=== PATIENT | female | born 1970 | race Caucasian/White ===

== ENCOUNTER 2017-10-02 17:53 | Emergency (ER) | payer BC ==
[~2017-10-02] VITALS: Ht 167.6 cm; Wt 100.0 kg
[2017-10-02] MEDS ORDERED: normal saline 1000ml 1,000 ML IV ONE (18:25)
[2017-10-02] MEDS ORDERED: LORazepam 2 mg/ml vial IV ONE ×2 (18:25→22:05)
[2017-10-02] MEDS ORDERED: morphine 4 MG/ML inj SYRINge IM ONE (18:25)
[2017-10-02] MEDS ORDERED: ketorolac trometh. 30mg/ml inj. IM ONE (18:25)
[2017-10-02] MEDS ORDERED: cyclobenzaprine 10mg tablet PO ONE (18:25)
[2017-10-02 19:00] LABS: BASOPHILS % (AUTO) 0.3 % (0-1); EOSINOPHILS # (AUTO) 0.2 X10'3 (0-0.9); EOSINOPHILS % (AUTO) 2.6 % (0-6); HEMATOCRIT 41.6 % (35.0-45.0); HEMOGLOBIN 14.1 g/dl (12.0-16.0); LYMPHOCYTES # (AUTO) 1.6 X10'3 (1.1-4.8); MEAN CORPUSCULAR HEMOGLOBIN 29.1 PG (27.0-31.0); MEAN CORPUSCULAR HGB CONC 33.9 % (33.0-36.5); MEAN CORPUSCULAR VOLUME 85.7 FL (78-98); MEAN PLATELET VOLUME 8.9 FL (7.4-10.4); MONOCYTES # (AUTO) 0.4 X10'3 (0-0.9); MONOCYTES % (AUTO) 5.2 % (2-12); NEUTROPHILS # (AUTO) 6.1 X10'3 (1.8-7.7); NEUTROPHILS % (AUTO) 72.9 % (42-75); PLATELET COUNT 274 X10'3 (140-440); RED BLOOD COUNT 4.85 X10'6 (4.20-5.60); RED CELL DISTRIBUTION WIDTH 14.4 % (11.5-14.5); WHITE BLOOD COUNT 8.4 X10'3 (4.5-11.0)
[2017-10-02 19:14] LABS: ALANINE AMINOTRANSFERASE 131 U/L (12-78); ALBUMIN 3.9 G/DL (3.4-5.0); ALBUMIN/GLOBULIN RATIO 0.8 (1.1-1.5); ALKALINE PHOSPHATASE 77 IU/L (46-116); ANION GAP 11 (8-16); ASPARTATE AMINO TRANSFERASE 68 U/L (10-37); BILIRUBIN,TOTAL 0.4 MG/DL (0.1-1.0); BLOOD UREA NITROGEN 13 MG/DL (7-18); BUN/CREATININE RATIO 21.3 (6.6-38.0); CALCIUM 9.4 MG/DL (8.5-10.1); CHLORIDE 103 MMOL/L (99-107); CREATININE 0.61 MG/DL (0.40-0.90); GLUCOSE 123 MG/DL (70-104); POTASSIUM 3.9 MMOL/L (3.5-5.1); SODIUM 141 MMOL/L (135-145); TOTAL PROTEIN 8.6 G/DL (6.4-8.2); eGFR > 90 ML/MIN
[2017-10-02] MEDS ORDERED: GABA-532 PO ×2 (20:00→22:41)
[2017-10-02] MEDS ORDERED: HYDR-569 PO ×2 (20:00→22:41)
[2017-10-02] MEDS ORDERED: CYCL-1 PO ×2 (20:00→22:41)
[2017-10-02] MEDS ORDERED: IBUP-1984 PO ×2 (20:00→22:41)
[2017-10-02] MEDS ORDERED: morphine 4 MG/ML inj SYRINge IV ONE (22:05)
[2017-10-02] MEDS ORDERED: acetaminophen 325mg tablet PO ONE (22:40)
[2017-10-02] MEDS ORDERED: ketorolac trometh. 30mg/ml inj. IV ONE (22:40)
[2017-10-02] MEDS ORDERED: BUPIVAcaine/PF 2.5mg/ml (0.25%) 10ml vial ONE (22:40)
[2017-10-02] MEDS ORDERED: LIDOcaine 2% (20mg/ml) 5ml vial ONE (22:40)
[2017-10-02] MEDS ORDERED: sodium bicarbonate 4.2% (0.5mEq/ml) inj. ONE (22:40)
[2017-10-02] MEDS ORDERED: iohexol 300 MG/1 ML 10ml vial ONE (22:41)
[2017-10-02] MEDS ORDERED: gadopentetate dimeglumine 5 mmol/10ml vial IV ONE (22:41)
[2017-10-03 01:16] LABS: APPEARANCE,CSF CLEAR; CSF SUPERNATANT COLOR COLORLESS; CSF VOLUME 9 ML; TUBE# COUNTED 4
[2017-10-03 01:23] LABS: CSF RBC 28 /CU MM (0); GLUCOSE,CSF 78 MG/DL (40-75); TOTAL PROTEIN,CSF 41 MG/DL (15-45)
[2017-10-03 01:27] LABS: CSF WBC CT 1 /CU MM (0-5)
[2017-10-03 02:21] VITALS: BP 120/79
== END 2017-10-03 02:24 | disposition home or self-care (01) ==
LOC: ER 17:54
DX: S16.1XXA Strain of muscle, fascia and tendon at neck level, initial encounter (principal); M50.322 Other cervical disc degeneration at C5-C6 level; W19.XXXA Unspecified fall, initial encounter; Y93.89 Activity, other specified; Y92.89 Other specified places as the place of occurrence of the external cause; Y99.8 Other external cause status
CPT/HCPCS: 36415; 62270; 70450; 72125; 77003; 80053; 82945; 84157; 85025; 87015; 87070; 89051; 96361; 96372; 96374; 96375; 96376; 99285; A9579; J1885; J2001; J2060; J2270; J7030; L0172; J3490; Q9967